=== PATIENT | female | born 1950 | race Caucasian/White ===

== ENCOUNTER 2016-05-23 13:17 | Emergency (ER) | payer MEDICARE | END 2016-05-23 16:40 | disposition home or self-care (01) | LOC: ER 13:17 | DX: J18.9 Pneumonia, unspecified organism (principal); R11.0 Nausea; R19.7 Diarrhea, unspecified; F41.9 Anxiety disorder, unspecified; J44.9 Chronic obstructive pulmonary disease, unspecified; I10 Essential (primary) hypertension; F17.210 Nicotine dependence, cigarettes, uncomplicated; Z90.49 Acquired absence of other specified parts of digestive tract; Z79.899 Other long term (current) drug therapy; Z88.5 Allergy status to narcotic agent | CPT/HCPCS: 36415; 96361; 96365; 96368; 96375; J0696 ==